=== PATIENT | female | born 1950 | race Caucasian/White ===

== ENCOUNTER → 2020-05-03 13:32 | Outpatient (REF) | payer MEDICARE, OTHER, SELFPAY | LOC: ANHLAB 13:32 | PROVIDERS: PCP Internal Medicine; Visit Provider Nurse Practitioner | DX: D49.2 Neoplasm of unspecified behavior of bone, soft tissue, and skin (principal) | CPT/HCPCS: 88305 ==

== ENCOUNTER 2022-09-19 13:00 | Outpatient (NON) | payer MEDICARE, OTHER, SELFPAY | END 2022-09-19 13:01 | disposition home or self-care (01) | PROVIDERS: PCP Internal Medicine; Visit Provider Nurse Practitioner | DX: D03.59 Melanoma in situ of other part of trunk (principal) | CPT/HCPCS: 88305; 88342 ==

== ENCOUNTER 2022-10-03 13:00 | Outpatient (NON) | payer MEDICARE, OTHER, SELFPAY | END 2022-10-04 10:13 | disposition home or self-care (01) | PROVIDERS: PCP Internal Medicine; Visit Provider Nurse Practitioner | DX: D03.9 Melanoma in situ, unspecified (principal) | CPT/HCPCS: 88305; 88342 ==

== ENCOUNTER 2023-01-25 12:37 | Outpatient (NON) | payer MEDICARE, OTHER, SELFPAY | END 2023-01-25 12:38 | disposition home or self-care (01) | LOC: ANHLAB 01-26 12:40 | PROVIDERS: PCP Internal Medicine; Visit Provider Nurse Practitioner | DX: L82.1 Other seborrheic keratosis (principal) | CPT/HCPCS: 88305 ==

== ENCOUNTER 2023-10-15 15:24 | Outpatient (CLI) | payer MEDICARE, OTHER, SELFPAY ==
[2023-10-15 16:10] LABS: Basophils Percent Auto 0.6 % (0.2-1.2); Eosinophils Absolute Auto 0.1 K/mm3 (0-0.3); Eosinophils Percent Auto 1.2 % (0-4.4); Hematocrit 39.7 % (37.0-47.0); Hemoglobin 12.4 g/dL (12.0-15.0); Lymphocytes Absolute Auto 1.12 K/mm3 (0.9-3.2); Lymphocytes Percent Auto 23.2 % (18.3-44.2); Mean Corpuscular HGB Conc 31.2 g/dl (32-36); Mean Corpuscular Hemoglobin 31.3 pg (26-34); Mean Corpuscular Volume 100.3 fl (80-100); Mean Platelet Volume 9.6 fl (7.4-10.4); Monocytes Absolute Auto 0.5 K/mm3 (0.1-0.6); Monocytes Percent Auto 9.3 % (2.6-8.5); Neutrophils Absolute Auto 3.2 K/mm3 (1.3-6.7); Neutrophils Percent Auto 65.7 % (45.5-73.1); Platelet Count Result 199 k/mm3 (150-375); Red Blood Count 3.96 M/mm3 (4.2-5.4); Red Cell Distribution Width 13.2 % (11.5-14.5); White Blood Count 4.8 K/mm3 (4.5-10.0)
--- NOTE | 2023-10-15 16:11 | ECG_ITS ---
Measurements Intervals [place] Rate: 83 P: -1 RI: 161 QRS: -27 QRSD: 102 T: 8 QT: 354 QTc: 416 Interpretive Statements SINUS RHYTHM DELAYED PRECORDIAL R/S TRANSITION LOW QRS VOLTAGE IN LIMB LEADS INFERIOR INFARCT, AGE INDETERMINATE ABNORMAL ECG NO PREVIOUS ECG AVAILABLE FOR COMPARISON Electronically Signed On 10-15-2023 16:44:04 SPEED OPERATOR by Gennaro Mario D.O.
[2023-10-15 16:20] LABS: Appearance Urine Clear (Clear); Bacteria Urine None Seen /hpf; Bilirubin Urine Negative (Negative); Blood Urine Negative (Negative); Color Urine Yellow (Yellow); Glucose Urine UA Negative (Negative); Ketones Urine Trace mg/dL (Negative); Leukocyte Esterase Ur 1+ LEU/UL (NEGATIVE); Nitrate Urine Negative (Negative); Non Pathogenic Casts 0-2; Protein Urine Negative (Negative); RBC Urine 0-2 /hpf (0-2); Specific Grav Ur 1.025 (1.001-1.035); Squamous Epithelial Cell Urine None seen /hpf (Few); pH Urine 5.5 (5.0-9.0)
[2023-10-15 16:21] LABS: Anion Gap 7 mmol/L (8-16); Blood Urea Nitrogen 23 mg/dL (7-17); Calcium 9.1 mg/dL (8.4-10.2); Carbon Dioxide 30 mmol/L (22-30); Chloride 104 mmol/L (98-107); Estimated Glomerular Filt Rate > 60; Glucose 103 mg/dL (65-110); Potassium 3.9 mmol/L (3.4-5.0); Sodium 141 mmol/L (137-145)
[2023-10-15 16:34] LABS: Add Urine Microscopic? YES
== END 2023-10-15 15:25 | disposition home or self-care (01) ==
PROVIDERS: PCP Family Medicine; Visit Provider Nurse Practitioner Family
DX: M17.12 Unilateral primary osteoarthritis, left knee (principal); R53.83 Other fatigue; R94.31 Abnormal electrocardiogram [ECG] [EKG]
CPT/HCPCS: 36415; 80048; 81001; 85025; 93005

== ENCOUNTER 2023-12-25 11:41 | Outpatient (CLI) | payer MEDICARE, OTHER, SELFPAY ==
[2023-12-25 13:05] LABS: Basophils Percent Auto 0.4 % (0.2-1.2); Eosinophils Absolute Auto 0.1 K/mm3 (0-0.3); Eosinophils Percent Auto 1.1 % (0-4.4); Hematocrit 36.4 % (37.0-47.0); Hemoglobin 12.1 g/dL (12.0-15.0); Immature Granulocyte Absolute 0.02 K/mm3 (0.00-0.031); Immature Granulocyte Percent A 0.4 % (0-0.5); Lymphocytes Absolute Auto 0.85 K/mm3 (0.9-3.2); Lymphocytes Percent Auto 19.1 % (18.3-44.2); Mean Corpuscular HGB Conc 33.2 g/dl (32-36); Mean Corpuscular Hemoglobin 31.2 pg (26-34); Mean Corpuscular Volume 93.8 fl (80-100); Monocytes Absolute Auto 0.4 K/mm3 (0.1-0.6); Monocytes Percent Auto 8.5 % (2.6-8.5); Neutrophils Absolute Auto 3.1 K/mm3 (1.3-6.7); Neutrophils Percent Auto 70.5 % (45.5-73.1); Platelet Count Result 212 k/mm3 (150-375); Red Blood Count 3.88 M/mm3 (4.2-5.4); Red Cell Distribution Width 12.8 % (11.5-14.5); White Blood Count 4.5 K/mm3 (4.5-10.0)
[2023-12-25 13:07] LABS: Appearance Urine Clear (Clear); Bilirubin Urine Negative (Negative); Blood Urine Negative (Negative); Color Urine Yellow (Yellow); Glucose Urine UA Negative (Negative); Ketones Urine Trace mg/dL (Negative); Leukocyte Esterase Ur Negative LEU/UL (Negative); Nitrate Urine Negative (Negative); Protein Urine Negative (Negative); Specific Grav Ur 1.022 (1.001-1.035)
[2023-12-25 13:16] LABS: Add Urine Microscopic? NO; Albumin Level 4.1 g/dL (3.5-5.1); Anion Gap 4 mmol/L (8-16); Blood Urea Nitrogen 17 mg/dL (7-17); Carbon Dioxide 31 mmol/L (22-30); Chloride 104 mmol/L (98-107); Estimated Glomerular Filt Rate > 60; Glucose 92 mg/dL (65-110); Potassium 3.9 mmol/L (3.4-5.0); Sodium 139 mmol/L (137-145)
[2023-12-25 13:18] LABS: Urine Cotinine NEGATIVE
[2023-12-25 13:19] LABS: Partial Thromboplastin Time 28.7 SECONDS (22.3-36.8); Prothrombin Time 13.4 Seconds (11.1-14.7)
[2023-12-25 13:26] LABS: Hemoglobin A1C 4.8 % (<5.7)
[2023-12-25 14:20] LABS: MRSA (PCR) NOT DETECTED (NOT DETECTE)
== END 2023-12-25 11:42 | disposition home or self-care (01) ==
LOC: ANHSURGERY 11:46
PROVIDERS: PCP Family Medicine; Visit Provider Orthopaedic Surgery
DX: Z01.818 Encounter for other preprocedural examination (principal); M17.12 Unilateral primary osteoarthritis, left knee
CPT/HCPCS: 80048; 80307; 81003; 82040; 83036; 85025; 85610; 85730; 87641

== ENCOUNTER 2024-01-17 17:59 | Observation (INO) | payer MEDICARE, OTHER, SELFPAY ==
--- NOTE | 2023-12-25 11:38 | PC.NURSE ---
Addendum entered by Elizabeth Valencia RN 12/25/23 12:27: PT AWARE 3 HOURS PRIOR TO SURGERY IS 0730 NOT 0930 Original Note: PRE-OP INSTRUCTIONS, PLEASE READ CAREFULLY Report to the Outpatient Waiting Room, entrance under the green pavilion located off [facility], at time _0830_ on date _01/09/24_. Planned Procedure Time: _1030_. PACK A SMALL OVERNIGHT BAG AND LEAVE IN THE CAR ALONG WITH YOUR WALKER Time changes happen often and if your time is changed the preop area will call you the afternoon before. - You and your visitor will be asked to self-screen and do not enter if you have any COVID symptoms. - A mask is optional within the hospital at this time. -VISITING HOURS 8AM-8PM Patients may have clear liquids (water, carbonated beverages, clear teas, apple juice) until 3 hours prior to surgery (0930 AM) with a maximum of 20 ounces. - No food from midnight until time of surgery Take the following medications with a SIP of water the morning of surgery: _NONE_ DO NOT STOP ANY OF YOUR OTHER PRESCRIPTION MEDICATIONS PRIOR TO SURGERY ?EXCEPT THE FOLLOWING Medications to discontinue per - _ALEVE PER DR. PIMENTEL'S INSTRUCTIONS_ Medications to discontinue per ANESTHESIA - _VITAMINS/SUPPLEMENTS 3 DAYS PRIOR TO SURGERY, Date to take last dose 01/05/24_ Please no make-up, nail andorran, hairspray, perfume, deodorant, or body powder the day of surgery. No jewelry (including any body piercings) or valuables the day of surgery, leave them at home. Please take a shower or bath the night before, or the morning of, surgery with an antibacterial soap. Wear comfortable, loose fitting clothing. - Jewelry must be removed prior to entering the operating room. Rings and piercings that are not removed may be cut off. - The hospital will not accept responsibility for valuables. - Please leave all valuables, including medications, at home the day of surgery. If you are going home after surgery, a licensed high lift driver must drive you home. - NO public transportation without another adult if you receive anesthesia. - We recommend that an adult stay with you for 24 hours following discharge. - We also recommend that you do not drive, make important decision, drink alcoholic beverages, or take any drugs that were not prescribed by your health care provider for at least 24 hours after your discharge time. Follow any additional instructions given to you from your surgeon. *TOTAL JOINT CLASS 12/26/23 @ [address] - [facility] ENTRANCE 2, LOWER LEVEL* If you or anyone in your household have experienced Covid symptoms in the past week, please notify your surgeon or the nurse liaison at the phone number below for possible testing. Instructions given to _PATIENT_and asked if any additional questions and then verbalized understanding. Patient advised to call surgeon office or pre surgery nurse liaison [phone] if any additional questions.
[2023-12-25 12:09] VITALS: BP 134/68; PULSE 80; RESP 18; TEMP 37; O2SAT 98; BMI 28.3
--- NOTE | 2024-01-11 09:12 | PC.NURSE ---
PT CONTACTED REGARDING NEW DATE/TIME OF SURGERY. PT STATES NO CHANGE IN HEALTH HX OR MED LIST - NEW DATE/TIME GIVEN, PT VOICED UNDERSTANDING
[2024-01-16] VITALS (16 sets, daily range): BP systolic 102–142; BP diastolic 56–80; PULSE 72–98; RESP 14–18; TEMP 36.4–37; O2SAT 90–100
[2024-01-16] MEDS: ACETAMINOPHEN 500 MG TABLET 1000 MG PO (06:38)
[2024-01-16] MEDS: LACTATED RINGERS 1,000 ML 30 ML IV CONT ×2 (06:45→10:09)
--- NOTE | 2024-01-16 06:58 | WPDANESEPPF ---
Anes - Initial Pre Proc Eval Procedure: Operation Date: 01/16/24 07:30 Proposed Procedures p Left Total Knee Arthroplasty - Abdiel Dalton MD Date/Time: 01/16/24 06:58 Surgeon: Abdiel Dalton MD Pre Op Diagnosis: severe lft knee djd w/valgus deformity Patient Data Age: 73 Gender: F Height: 1.54 m Weight: 67.45 kg Last Vital Signs Temp 36.4 C 01/16/24 06:52 Pulse 83 01/16/24 06:52 Resp 16 01/16/24 06:52 BP 142/75 H 01/16/24 06:52 Pulse Ox 98 01/16/24 06:52 O2 Del Method Room Air 01/16/24 06:52 Allergies Allergy/AdvReac Type Severity Reaction Status Date / Time No Known Allergies Allergy Verified 01/16/24 06:22 Home Medications Medication Instructions Recorded Confirmed Type ascorbate calcium (vitamin C) 500 2,000 mg PO DAILY 04/12/21 01/16/24 History mg tablet biotin 10,000 mcg capsule 10,000 mcg PO DAILY 04/12/21 01/16/24 History cholecalciferol (vitamin D3) 50 50 mcg PO DAILY 04/12/21 01/16/24 History mcg (2,000 unit) capsule iron,carbonyl 65 mg-vitamin C 125 1 tablet PO DAILY 04/12/21 01/16/24 History mg tablet,delayed release (Vitron-C) apppeeeb-wmpw-npdk 8 mg-folic 400 1 tablet PO DAILY 04/12/21 01/16/24 History mcg-K 50 mcg-lutein 300 mcg tablet (Centrum Silver Women) magnesium 250 mg tablet 250 mg PO DAILY 10/15/23 01/16/24 History mecobalamin (vitamin B12) 1,000 1,000 mcg PO DAILY 10/15/23 01/16/24 History mcg chewable tablet calcium carbonate 600 mg calcium 600 mg PO BID 10/17/23 01/16/24 History (1,500 mg) tablet lorazepam 0.5 mg tablet See Rx Instructions PO QHS PRN 10/17/23 12/25/23 Rx sleep #30 tabs chlorhexidine gluconate 4 % 1 applic topical ONCE #237 mL 12/25/23 01/16/24 Rx topical liquid (Hibiclens) multivitamin with minerals 1 tablet PO DAILY 12/25/23 01/16/24 History naproxen sodium 220 mg capsule 220 mg PO Q12H PRN Pain 12/25/23 01/16/24 History (Aleve) turmeric root extract 150 1 tablet PO DAILY 12/25/23 01/16/24 History mg-rachel root extract 25 mg chewable tablet Patient hx anesthesia problems: none Family hx anesthesia problems: none Results Review: All pre-operative results and documents have been reviewed as part of the pre-operative evaluation. PMFSH Past Medical History Medical History Anemia Blepharitis, bilateral Dyslipidemia Hiatal hernia Iron deficiency Knee pain Osteoarthritis of left knee Osteoarthritis of right knee Osteoporosis Preoperative clearance Rash Right knee pain Surgical History Surgical History H/O parathyroidectomy x4 Family History Family History Sibling Hypertension Father Family history of cardiovascular disease Mother Family history of cardiovascular disease Family history of malignant neoplasm Social History Social History Smoking status: Never smoker Second hand tobacco smoke exposure: No Additional smoking assessment comments: PT DENIES ALL FORMS OF TOBACCO USE Alcohol intake: never Substance use: never Substance use type: does not use Lack of Transportation: No Lack of Food: Never True Current Housing: I Have Housing Concerned About Future Housing: No Difficulty Paying Gas/Electric Bills: No Difficulty Paying for Meds: No Currently Unemployed: No Education: High School Diploma/GED Difficulty w/ Childcare or Family Care: No Living arrangements: with family Occupation/Education: retired Gender identity (if verbalized by the patient): Female Sexual Orientation (if Verbalized by the Patient): Straight or Heterosexual Spiritual care concerns: No Anes - Eval Final PreProcedure Day of Procedure 01/16/24 06:58 Patient weight: overweight Heart: regular rate and rhythm Lungs: clear t
[2024-01-16] MEDS: TRANEXAMIC ACID 1,000MG/ISO100 1,000 MG/100 ML BAG 200 MG IVPB (07:15)
--- NOTE | 2024-01-16 07:17 | WPDHPUPDATE1 ---
History and Physical Update Update Date/Time: 01/16/24 07:17 History and Physical has been reviewed, including an updated exam of the patient. There are NO changes in the patient's condition. Risks, benefits, and alternatives have been discussed and questions answered. Patient agrees to proceed with procedure.
--- NOTE | 2024-01-16 07:25 | PM.IMHP ---
H&P: HPI History of Present Illness Date/Time: 01/16/24 07:25 Chief Complaint: LEFT KNEE PAIN X 1 YEAR. HER PAIN S SEVERE. SHE HAS FAILED NON OPERATIVE TREATMENT. SHE IS HERE FOR LEFT KNEE REPLACEMENT Review of Systems Review of Systems: All systems reviewed & are unremarkable except as noted in HPI and below Eyes: Eyes: Reports as per HPI Cardiovascular: Cardiovascular: Reports as per HPI [facility] Past Medical History Medical History Anemia Blepharitis, bilateral Dyslipidemia Hiatal hernia Iron deficiency Knee pain Osteoarthritis of left knee Osteoarthritis of right knee Osteoporosis Preoperative clearance Rash Right knee pain Surgical History Surgical History H/O parathyroidectomy x4 Family History Family History Sibling Hypertension Father Family history of cardiovascular disease Mother Family history of cardiovascular disease Family history of malignant neoplasm Social History Social History Smoking status: Never smoker Second hand tobacco smoke exposure: No Additional smoking assessment comments: PT DENIES ALL FORMS OF TOBACCO USE Alcohol intake: never Substance use: never Substance use type: does not use Lack of Transportation: No Lack of Food: Never True Current Housing: I Have Housing Concerned About Future Housing: No Difficulty Paying Gas/Electric Bills: No Difficulty Paying for Meds: No Currently Unemployed: No Education: High School Diploma/GED Difficulty w/ Childcare or Family Care: No Living arrangements: with family Occupation/Education: retired Gender identity (if verbalized by the patient): Female Sexual Orientation (if Verbalized by the Patient): Straight or Heterosexual Spiritual care concerns: No Meds Home Medications and Allergies Home Medications Medication Instructions Recorded Confirmed Type ascorbate calcium (vitamin C) 500 2,000 mg PO DAILY 04/12/21 01/16/24 History mg tablet biotin 10,000 mcg capsule 10,000 mcg PO DAILY 04/12/21 01/16/24 History cholecalciferol (vitamin D3) 50 50 mcg PO DAILY 04/12/21 01/16/24 History mcg (2,000 unit) capsule iron,carbonyl 65 mg-vitamin C 125 1 tablet PO DAILY 04/12/21 01/16/24 History mg tablet,delayed release (Vitron-C) ivnfnmwq-bfhj-wcoe 8 mg-folic 400 1 tablet PO DAILY 04/12/21 01/16/24 History mcg-K 50 mcg-lutein 300 mcg tablet (Centrum Silver Women) magnesium 250 mg tablet 250 mg PO DAILY 10/15/23 01/16/24 History mecobalamin (vitamin B12) 1,000 1,000 mcg PO DAILY 10/15/23 01/16/24 History mcg chewable tablet calcium carbonate 600 mg calcium 600 mg PO BID 10/17/23 01/16/24 History (1,500 mg) tablet lorazepam 0.5 mg tablet See Rx Instructions PO QHS PRN 10/17/23 12/25/23 Rx sleep #30 tabs chlorhexidine gluconate 4 % 1 applic topical ONCE #237 mL 12/25/23 01/16/24 Rx topical liquid (Hibiclens) multivitamin with minerals 1 tablet PO DAILY 12/25/23 01/16/24 History naproxen sodium 220 mg capsule 220 mg PO Q12H PRN Pain 12/25/23 01/16/24 History (Aleve) turmeric root extract 150 1 tablet PO DAILY 12/25/23 01/16/24 History mg-rachel root extract 25 mg chewable tablet Allergies Allergy/AdvReac Type Severity Reaction Status Date / Time No Known Allergies Allergy Verified 01/16/24 06:22 Vital Signs Vital Signs - 24 hr 01/16/24 06:52 Temperature 36.4 C Pulse Rate 83 Respiratory Rate 16 Blood Pressure 142/75 H Pulse Oximetry 98 Oxygen Delivery Room Air Exam Const: General: cooperative, healthy appearing and comfortable HENMT: Head: normal to inspection, No palpable skull fracture present and normocephalic Ears: hearing grossly normal bilaterally Eyes: General: appearance normal, both eyes and all
--- NOTE | 2024-01-16 07:29 | WPDANESPNB ---
Anes - Peripheral Nerve Block Date/Time: 01/16/24 07:29 I have discussed with the patient/family/POA the placement of a peripheral nerve block for post-operative pain management, including associated risks, benefits, complications, and side effects. Alternative methods of post-operative analgesia were detailed. Questions were solicited and answers provided to the satisfaction of the patient/family/POA. Time-Out: A pre-procedural Time-Out was completed immediately before starting the procedure and confirmed: Patient Identification, Site, Procedure, Patient Position and the Availability of Requisite Equipment. Clinical Indications: Acute post-operative pain management requested by the operative surgeon. Nerve Block Insertion Note Anes-nerve block: adductor canal left Patient position: supine Skin prep: chlorhexidine Needle: 22 gauge, stimulating, insulated echogenic needle. Needle length: 80 mm Technique: ultrasound Injectate: bupivacaine 0.5% with epi 5 mcg/ml (30cc) and dexamethasone (mg) (8) Observations: tolerated well Complications: none Procedure start time:: 725 Procedure end time:: 729
[2024-01-16] MEDS: ceFAZolin 2 GM/D5W 50 ML 2 GM/50 ML BAG IVPB ×3 (07:30→23:12)
--- NOTE | 2024-01-16 07:33 | WPDHPUPDATE1 ---
History and Physical Update Update Date/Time: 01/16/24 07:33 History and Physical has been reviewed, including an updated exam of the patient. There are NO changes in the patient's condition. Risks, benefits, and alternatives have been discussed and questions answered. Patient agrees to proceed with procedure.
[2024-01-16] MEDS: SODIUM CHLORIDE 0.9% IV 37.7 ML, MORPHINE SULFATE INJ (*CRX) 2 MG, ROPivacaine HCL 1% 2... INFILTRATE (08:06)
[2024-01-16] MEDS: GENTAMICIN BONE CEMENT REFOBACIN 1 EACH TOPICAL (08:52)
[2024-01-16] MEDS: TRANEXAMIC ACID 1,000 MG/10 ML AMPUL 1000 MG IV PUSH (09:08)
--- NOTE | 2024-01-16 09:54 | P.OP_ITS ---
Procedure Note - Detailed Date of Procedure 01/16/24 Pre-op Diagnosis severe lft knee djd w/valgus deformity Post-op Diagnosis Same Procedure Performed L TKA Surgeon Abdiel Dalton MD Anesthesia General Description of Procedure THE LEFT KNEE WAS PREPPED AND DRAPED IN THE STERILE FASHION. THERE WAS A 10 DEGREE FLEXION CONTRACTURE. A MIDLINE SKIN INCISION WAS MADE. A MEDIAL PARAPATELLAR ARTHROTOMY WAS MADE. THE PATELLA WAS EVERTED. THERE WAS TRICOMPARTMENT DJD. THERE WAS MINIMAL PATELLA DJD. AN INTRAMEDULLARY FLORINA WAS PLACED IN THE FEMUR. A DISTAL FEMORAL CUT WAS MADE IN 5 DEGREES OF VALGUS REMOVING APPROXIMATELY 9 MM OF BONE FROM THE DISTAL FEMUR. THE FEMUR WAS SIZED TO 62.5. A 62.5 FEMORAL CUTTING BLOCK WAS PLACED IN 3 DEGREES OF EXTERNAL ROTATION AND IN ALIGNMENT WITH KIMANI'S LINE AND THE TRANSEPICONDYLAR AXIS. ANTERIOR POSTERIOR AND CHAMFER CUTS WERE MADE. THE CUTS WERE EXCELLENT. NEXT AN INTRAMEDULLARY CUTTING GUIDE WAS PLACED IN THE TIBIA. A TRANS TIBIAL CUT WAS MADE ALONG THE LONG AXIS OF THE TIBIA. APPROXIMATELY 10 MM OF BONE WAS REMOVED FROM THE HIGH SIDE OF THE TIBIA. THE TIBIA WAS THEN PLANED TO A SMOOTH SURFACE. POSTERIOR FEMORAL OSTEOPHYTES WERE REMOVED FROM THE FEMORAL CONDYLES. A 71 TIBIAL TRIAL WAS PLACED IN ALIGNMENT WITH THE 1/3 MEDIAL ASPECT OF THE TIBIAL T UBERCLE. THEN A 62.5 FEMORAL TRIAL COMPONENT WAS PLACED. BOTH HAD EXCELLENT FITS. EVENTUALLY A 10 MM POLYETHYLENE TRIAL COMPONENT WAS PLACED. THE KNEE WAS TAKEN THROUGH A RANGE OF MOTION. THE KNEE CAME OUT TO FULL EXTENSION. THERE WAS NO ABNORMAL TILT TO THE PATELLA. THERE WAS GOOD A/P AND VARUS/VALGUS STABILITY. THERE WAS NO EXCESSIVE ROLL BACK WITH FLEXION. THE TRIAL COMPONENTS WERE REMOVED. THEN A 62.5 FEMORAL COMPONENT AND 71 TIBIAL COMPONENT WITH A 10 POLYETHYLENE COMPONENT WERE CEMENTED INTO PLACE. ONCE THE CEMENT WAS HARD THE KNEE WAS TAKEN THROUGH A ROM AGAIN AND FOUND TO BE STABLE WITH NO PATELLA TILT NO EXCESSIVE ROLL BACK WITH FLEXION AND GOOD STABILITY WITH COMPLETE AND FULL EXTENSION. THE KNEE WAS IRRIGATED WITH STERILE BETADINE AND WATER FOR ABOUT 3 MINUTES. THE BLEEDERS WERE CAUTERIZED. THE ARTHROTOMY WAS REPAIRED WITH NUMBER 1 VICRYL. THE SUB CUTANEOUS LAYER WITH 2-0 VICRYL AND THE SKIN WITH PENNY. THE WOUND WAS WASHED AND A STERILE DRESSING WAS APPLIED. PATIENT WAS EXTUBATED. Estimated Blood Loss -150.0 Pathology None sent Complications No immediate complications Condition Stable Disposition PACU
[2024-01-16] MEDS: fentaNYL CITRATE INJ (*CRX) 100 MCG/2 ML VIAL 25 MCG IV PUSH ×8 (10:30→11:19)
--- NOTE | 2024-01-16 11:57 | ADMGEN ---
This patient, Ange Carrasco, was admitted to room 261 -. Patient/family oriented to hospital policies and general routines including ID bracelet, bed and alarms, visiting hours, pain management, procedures, bathroom and other care routines, personal items, smoking policy, room service/diet, and visiting hours. Information on how to activate the Rapid Response Team has been discussed. Patient/Family are encouraged to report perceived risks to care and to ask questions if they do not understand what they are told or what they should do.
[2024-01-16] MEDS: oxyCODONE/ACETAMINOPHEN (*CRX) 5-325 MG TABLET 1 TABLET PO (16:32)
[2024-01-16] MEDS: CELECOXIB 200 MG CAPSULE PO (16:32)
--- NOTE | ~2024-01-17 | XR_ITS ---
EXAMINATION: [id number] DATE: 01/16/2024 10:24 INDICATION: Postoperative evaluation following left total knee arthroplasty. TECHNIQUE: Anteroposterior and lateral views of the left knee were obtained. COMPARISON: 12/14/2023 FINDINGS: Left total knee arthroplasty without patellar resurfacing appears well seated and in near anatomic al ignment. No fractures identified. Anterior skin siabel and expected postoperative subcutaneous and intra-articular gas. IMPRESSION: 1. Left total knee arthroplasty, negative for postoperative purposes. Reviewed, dictated and finalized at location B. [employer]
--- NOTE | ~2024-01-17 | US_ITS ---
EXAMINATION: US venous doppler [facility] DATE: 01/18/2024 11:09 INDICATION: Left lower limb pain and swelling. TECHNIQUE: Grayscale ultrasound images without and with compression and Doppler ultrasound images of the left lower extremity veins were obtained. COMPARISON: None. FINDINGS: The visualized portions of left common femoral vein, profunda (deep) femoral vein, femoral vein, popl iteal vein, peroneal veins, posterior tibial veins, and greater saphenous vein outflow are patent. IMPRESSION: 1. No deep venous thrombosis. Reviewed, dictated and finalized at location A. [employer]
[2024-01-17 01:34] VITALS: BP 109/63; PULSE 73; RESP 20; TEMP 36.8; O2SAT 98
[2024-01-17 05:40] LABS: Basophils Percent Auto 0.1 % (0.2-1.2); Eosinophils Percent Auto 0.3 % (0-4.4); Hematocrit 29.5 % (37.0-47.0); Hemoglobin 9.4 g/dL (12.0-15.0); Immature Granulocyte Absolute 0.02 K/mm3 (0.00-0.031); Immature Granulocyte Percent A 0.3 % (0-0.5); Lymphocytes Absolute Auto 1.01 K/mm3 (0.9-3.2); Lymphocytes Percent Auto 12.8 % (18.3-44.2); Mean Corpuscular HGB Conc 31.9 g/dl (32-36); Mean Corpuscular Hemoglobin 31.2 pg (26-34); Mean Platelet Volume 9.7 fl (7.4-10.4); Monocytes Absolute Auto 0.8 K/mm3 (0.1-0.6); Monocytes Percent Auto 9.5 % (2.6-8.5); Neutrophils Absolute Auto 6.1 K/mm3 (1.3-6.7); Platelet Count Result 145 k/mm3 (150-375); Red Blood Count 3.01 M/mm3 (4.2-5.4); Red Cell Distribution Width 13.2 % (11.5-14.5); White Blood Count 7.9 K/mm3 (4.5-10.0)
[2024-01-17 05:48] LABS: Anion Gap 3 mmol/L (8-16); Blood Urea Nitrogen 20 mg/dL (7-17); Calcium 8.4 mg/dL (8.4-10.2); Carbon Dioxide 29 mmol/L (22-30); Chloride 103 mmol/L (98-107); Estimated CRCL calculation 47 ml/min; Estimated Glomerular Filt Rate > 60; Glucose 102 mg/dL (65-110); Potassium 3.9 mmol/L (3.4-5.0); Sodium 135 mmol/L (137-145)
[2024-01-17 06:00] VITALS: BP 108/61; PULSE 77; RESP 20; TEMP 36.3; O2SAT 99
[2024-01-17] MEDS: ceFAZolin 2 GM/D5W 50 ML 2 GM/50 ML BAG IVPB (07:02)
[2024-01-17] MEDS: oxyCODONE/ACETAMINOPHEN (*CRX) 5-325 MG TABLET 1 TABLET PO ×4 (08:21→22:27)
--- NOTE | 2024-01-17 09:21 | PM.PNORT ---
Progress Note: A&P Assessment and Plan (1) S/P total knee arthroplasty: Qualifiers: Laterality: left Qualified Code(s): Z96.652 - Presence of left artificial knee joint <LISSA Lauren - Last Filed: 01/17/24 09:33> Code(s): Z96.659 - Presence of unspecified artificial knee joint <LISSA Lauren - Last Filed: 01/17/24 09:33> Status: Acute <LISSA Lauren - Last Filed: 01/17/24 09:33> Assessment and Plan: POD #1 : Left TKA Continue PT/OT. WBAT. Walker. HIGH FALL RISK. Continue pain control. Ice Knee. Protect skin. DVT prophylaxis with Aspirin. SCDs. Incentive Spirometry Use reviewed. Monitor Dressing. Change prior to discharge. Bowel Regimen. Dispo: Home with Home Health pending progress with PT/OT <LISSA Lauren - Last Filed: 01/17/24 09:33> Assessment and Plan: Reviewed history, exam, radiographs and current labs with attending MD and patient's surgeon, Dr. Dalton, who agrees with current plan as indicated above. No further recommendations from Dr. Dalton at this time. <LISSA Lauren - Last Filed: 01/17/24 09:33> Subjective Subjective Date/Time Seen: 01/17/24 09:21 <LISSA Lauren - Last Filed: 01/17/24 09:33> Post Op day: 1 <LISSA Lauren - Last Filed: 01/17/24 09:33> Principal diagnosis: Left Knee DJD <LISSA Lauren - Last Filed: 01/17/24 09:33> Interval history: POD #1: Left TKA Patient doing well. Awaiting PT/OT. Concerned about ability to do stairs/ambulate with left foot drop. Awaiting brace fitting by [facility] [place] to assist with ambulation. Pain well controlled. Otherwise, no new concerns. Feels nerve block is starting to wear off. <LISSA Lauren - Last Filed: 01/17/24 09:33> Review of Systems Review of Systems: All systems reviewed & are unremarkable except as noted in HPI and below <LISSA Lauren - Last Filed: 01/17/24 09:33> Constitutional: Constitutional: Denies fever(s) and Denies headache(s) <MIRNA LaurenP - Last Filed: 01/17/24 09:33> ENT: Denies headache(s) <MIRNA LaurenP - Last Filed: 01/17/24 09:33> Cardiovascular: Cardiovascular: Denies chest pain, Denies diaphoresis, Denies palpitations and Denies dyspnea <MIRNA LaurenP - Last Filed: 01/17/24 09:33> Respiratory: Respiratory: Denies dyspnea <MIRNA LaurenP - Last Filed: 01/17/24 09:33> Gastrointestinal: Gastrointestinal: Denies abdominal pain, Denies constipation, Denies nausea and Denies vomiting <MIRNA LaurenP - Last Filed: 01/17/24 09:33> Genitourinary: Genitourinary: Reports nocturia and Denies dysuria <MIRNA LaurenP - Last Filed: 01/17/24 09:33> Musculoskeletal: Musculoskeletal: Reports arthralgias (Left Knee ), Reports joint swelling (Left Knee ) and Reports limited range of motion (ROM limited due to recent surgical intervention LEFT Knee ) <LISSA Lauren - Last Filed: 01/17/24 09:33> Neurologic: Denies headache(s) <MIRNA LaurenP - Last Filed: 01/17/24 09:33> Endocrine: Endocrine: Denies palpitations <MIRNA LaurenP - Last Filed: 01/17/24 09:33> Exam Const: General: comfortable and no acute distress <LISSA Lauren - Last Filed: 01/17/24 09:33> Resp: Effort & Inspection: normal respiratory effort <LISSA Lauren - Last Filed: 01/17/24 09:33> Cardio: Rate: regular rate <LISSA Lauren - Last Filed: 01/17/24 09:33> Rhythm: regular rhythm <LISSA Lauren - Last Filed: 01/17/24 09:33> GI: GI Palp: Yes Soft to palpation, No Tenderness to palpation present (GI) and No Guarding due to palpation present (GI) <LISSA Lauren - Last Filed: 01/17/24 09:33> Skin: General skin exam: wounds noted (see extremity assessment ) <LISSA Lauren - Last Filed: 01/17/24 09:33> Wounds: wounds noted (see extremity assessment ) <LISSA Lauren - Last Filed: 01/17/24 09:33> [place]
[2024-01-17] MEDS: CHOLECALCIFEROL 1,000 UNITS TABLET 2000 UNITS PO (10:03)
[2024-01-17] MEDS: FAMOTIDINE 20 MG TABLET PO ×2 (10:03→21:17)
[2024-01-17] MEDS: ASCORBIC ACID 500 MG TABLET 2000 MG PO (10:03)
[2024-01-17] MEDS: CALCIUM CARBONATE (OSCAL) 500 MG TABLET PO ×2 (10:04→16:26)
[2024-01-17] MEDS: SENNA/DOCUSATE SODIUM TABLET 2 TAB PO ×2 (10:04→16:26)
[2024-01-17] MEDS: ASPIRIN 325 MG ENTERIC TABLET PO ×2 (10:04→21:17)
[2024-01-17 10:18] VITALS: BP 107/57; PULSE 89; RESP 18; TEMP 36.9; O2SAT 98
--- NOTE | 2024-01-17 11:03 | PCOTNOTE ---
Per RN, Patient is waiting on an AFO to be delivered. Asked if I could come back later this afternoon. Will try back.
--- NOTE | 2024-01-17 12:01 | PC.NURSE ---
On 01/17/24, the student, [Roxana Moran], provided care and completed [facility] documentation on this patient. I have reviewed the student's documentation and agree with the findings.
--- NOTE | 2024-01-17 13:05 | WPDANESPN ---
Anes - Prog Note Post-Op Date/Time: 01/17/24 13:05 Cardiovascular status: normal Respiratory status: normal Airway patency: baseline Mental status: baseline Post-Op hydration status: normal Vital Signs: Last Vital Signs Temp 36.9 C 01/17/24 10:18 Pulse 89 01/17/24 10:18 Resp 18 01/17/24 10:18 BP 107/57 L 01/17/24 10:18 Pulse Ox 98 01/17/24 10:18 O2 Del Method Room Air 01/16/24 12:34 O2 Flow Rate 2 01/16/24 12:30 Pain Score (VAS): 2 I/O: Intake & Output 01/16/24 01/17/24 01/17/24 23:59 07:59 15:59 Intake Total 1130 500 240 Balance 1130 500 240 Laboratory Tests 01/17/24 05:15 01/17/24 05:15 01/17/24 05:15 WBC 7.9 RBC 3.01 L Hgb 9.4 L Hct 29.5 L MCV 98.0 MCH 31.2 MCHC 31.9 L RDW 13.2 Plt Count 145 L MPV 9.7 Immature Gran % (Auto) 0.3 Neut % (Auto) 77.0 H Lymph % (Auto) 12.8 L Hanson % (Auto) 9.5 H Eos % (Auto) 0.3 Baso % (Auto) 0.1 L Lymph # (Auto) 1.01 Hanson # (Auto) 0.8 H Eos # (Auto) 0.0 Baso # (Auto) 0.0 Abs Immat Gran (auto) 0.02 Absolute Neuts (auto) 6.1 Absolute Nucleated RBC 0.0 Nucleated RBC % 0.0 Sodium 135 L Potassium 3.9 Chloride 103 Carbon Dioxide 29 Anion Gap 3 L BUN 20 H Creatinine 0.80 Estim Creat Clear Calc 47 Estimated GFR > 60 Glucose 102 Calcium 8.4 Post-procedural complaints: none Patient Feedback: Patient satisfied with anesthetic care.
[2024-01-17 14:00] VITALS: BP 105/58; PULSE 92; RESP 18; TEMP 36.7; O2SAT 100
--- NOTE | 2024-01-17 15:13 | PC.NURSE ---
Beverly Peter TANK COOPER notified of increased swelling in left leg and foot from previous assessment this am.
[2024-01-17 18:24] VITALS: BP 121/71; PULSE 98; RESP 18; TEMP 36.7; O2SAT 95
[2024-01-17 22:13] VITALS: BP 110/76; PULSE 96; RESP 20; TEMP 36.4; O2SAT 98
[2024-01-18 01:32] VITALS: BP 113/65; PULSE 101; RESP 18; TEMP 36.6; O2SAT 96
[2024-01-18] MEDS: polyethylene glycoL 3350 17 GM POWD.PACK PO (05:40)
[2024-01-18 06:00] VITALS: BP 113/58; PULSE 97; RESP 18; TEMP 37.2; O2SAT 96
[2024-01-18] MEDS: FAMOTIDINE 20 MG TABLET PO (07:58)
[2024-01-18] MEDS: SENNA/DOCUSATE SODIUM TABLET 2 TAB PO (07:59)
[2024-01-18] MEDS: oxyCODONE/ACETAMINOPHEN (*CRX) 5-325 MG TABLET 1 TABLET PO (08:04)
[2024-01-18 09:28] VITALS: O2SAT 96
--- NOTE | 2024-01-18 09:53 | PM.PNORT ---
Progress Note: A&P Assessment and Plan (1) S/P total knee arthroplasty: Qualifiers: Laterality: left Qualified Code(s): Z96.652 - Presence of left artificial knee joint Code(s): Z96.659 - Presence of unspecified artificial knee joint Status: Acute Assessment and Plan: POD #2: Left TKA Continue PT/OT. WBAT. Walker. HIGH FALL RISK. Continue pain control. Ice Knee. Protect skin. Patient with complaints of nerve type pain in the LLE likely related to the foot drop. Added gabapentin today. Reviewed fall precautions. DVT prophylaxis with Aspirin. Obtain doppler. SCDs. Incentive Spirometry Use reviewed. Monitor Dressing. Change prior to discharge. Bowel Regimen. Add Miralax. Dispo: Home with Home Health pending progress with PT/OT Plan Reviewed history, exam, radiographs and current labs with attending MD and patient's surgeon, Dr. Dalton, who agrees with current plan as indicated above. No further recommendations from Dr. Dalton at this time. Subjective Subjective Date/Time Seen: 01/18/24 09:53 Post Op day: 2 Principal diagnosis: Left Knee DJD Interval history: POD #2: Left TKA Patient working with OT at the time of exam. Difficulty fitting foot drop brace into the shoe. Complains of left calf pain. Swelling noted, consistent with recent surgical intervention. Assist with modification to foot drop brace to fit into shoe. Patient ambulating with walker well. Review of Systems Review of Systems: All systems reviewed & are unremarkable except as noted in HPI and below Constitutional: Constitutional: Denies fever(s) and Denies headache(s) ENT: Denies headache(s) Cardiovascular: Cardiovascular: Denies chest pain, Denies diaphoresis, Denies palpitations and Denies dyspnea Respiratory: Respiratory: Denies dyspnea Gastrointestinal: Gastrointestinal: Denies abdominal pain, Denies constipation, Denies nausea and Denies vomiting Genitourinary: Genitourinary: Reports nocturia and Denies dysuria Musculoskeletal: Musculoskeletal: Reports arthralgias (Left Knee ), Reports joint swelling (Left Knee ) and Reports limited range of motion (ROM limited due to recent surgical intervention LEFT Knee ) Neurologic: Denies headache(s) Endocrine: Endocrine: Denies palpitations Exam Const: General: comfortable and no acute distress Resp: Effort & Inspection: normal respiratory effort Cardio: Rate: regular rate Rhythm: regular rhythm GI: GI Palp: Yes Soft to palpation, No Tenderness to palpation present (GI) and No Guarding due to palpation present (GI) Skin: General skin exam: wounds noted (see extremity assessment ) Wounds: wounds noted (see extremity assessment ) Neuro: Cognition (Neuro): normal cognition Extrem: Left lower extremity: normal to inspection, normal capillary refill, knee Details: tenderness (diffuse ) Location: of the patella, swelling (moderate consistent to recent surgery ), abnormal ROM (limited due to recent surgery ) Details: pain with active ROM and pain with passive ROM and ecchymosis (as expected with recent surgery. NO hematoma. ), lower leg (Negative Douglas's Sign ), ankle (inability to dorsiflex the left ankle. ) Details: normal to inspection and no edema; no tenderness and no swelling and foot Details: normal capillary refill, abnormal ROM of toe (foot drop ), vascular exam Details: dorsalis pedis pulse present and motor-sensory exam light-touch normal; no tenderness Other: Foot drop LLE. No dorsiflexion. Swelling LLE. Pain/numbness/tingling. Incision left TKA dressing c/d/i. No hematoma. No signs of infection. No wound dehiscence. Psych: Mental Status: mental status grossly normal Objective Data Vital Signs Vital Signs: Vital Signs - 24 hr 01/17/24 10:18 01/17/24 14:00 01/17/24 18:24 Temperature 36.9 C 36.7 C 36.7 C Pulse Rate 89 92 98 Respiratory Rate 18 18 18 Blood Pressure 107/57 L 105/58 L 121/71 Pulse Oximetry 98 100 95 Oxygen Delivery
[2024-01-18] MEDS: ASCORBIC ACID 500 MG TABLET 2000 MG PO (09:54)
[2024-01-18] MEDS: CALCIUM CARBONATE (OSCAL) 500 MG TABLET PO (09:55)
[2024-01-18] MEDS: ASPIRIN 325 MG ENTERIC TABLET PO (09:55)
[2024-01-18] MEDS: CHOLECALCIFEROL 1,000 UNITS TABLET 2000 UNITS PO (09:55)
[2024-01-18 10:02] VITALS: BP 118/70; PULSE 105; RESP 18; TEMP 36.7; O2SAT 97
[2024-01-18] MEDS: GABAPENTIN 100 MG CAPSULE PO (11:44)
--- NOTE | 2024-01-18 12:16 | PM.DS ---
DS: Admitting Diagnosis Discharge Date 01/18/2024 <LISSA Lauren - Last Filed: 01/18/24 12:42> Admitting Diagnosis Left Knee DJD <LISSA Lauren - Last Filed: 01/18/24 12:42> DS: Discharge Diagnosis Discharge Diagnosis (1) S/P total knee arthroplasty: Qualifiers: Laterality: left Qualified Code(s): Z96.652 - Presence of left artificial knee joint <LISSA Lauren - Last Filed: 01/18/24 12:42> Code(s): Z96.659 - Presence of unspecified artificial knee joint <LISSA Lauren - Last Filed: 01/18/24 12:42> Status: Acute <LISSA Lauren - Last Filed: 01/18/24 12:42> Assessment and Plan: POD #2: Left TKA Continue PT/OT. WBAT. Walker. HIGH FALL RISK. Continue pain control. Ice Knee. Protect skin. Patient with complaints of nerve type pain in the LLE likely related to the foot drop. Added gabapentin today. Reviewed fall precautions. DVT prophylaxis with Aspirin. Obtain doppler. SCDs. Incentive Spirometry Use reviewed. Monitor Dressing. Change prior to discharge. Bowel Regimen. Add Miralax. Dispo: Home with Home Health pending progress with PT/OT <LISSA Lauren - Last Filed: 01/18/24 12:42> Assessment and Plan: Reviewed history, exam, radiographs and current labs with attending MD and patient's surgeon, Dr. Dalton, who agrees with current plan as indicated above. No further recommendations from Dr. Dalton at this time. <LISSA Lauren - Last Filed: 01/18/24 12:42> DS: Summary Hospital Course Reason for hospitalization: Left TKA <LISSA Lauren - Last Filed: 01/18/24 12:42> Hospital Course: 73 year old female admitted s/p Left TKA for postoperative medical management, pain control and mobilization with PT/OT. Patient progressed well with PT/OT. Pain and vitals remained stable throughout. Patient had slow progress on POD #1 due to foot drop which occurred postoperatively likely due to severe valgus knee. We have fitted the patient with a foot drop brace and started her on Gabapentin for pain relief. We will also order a peroneal nerve stimulator for the patient as an outpatient to assist in recovery. The patient has been cleared to be discharged home with home health at this time. All discharge care instructions reviewed at depth. New medications reviewed. Follow up planned for 3 weeks in the outpatient orthopedic clinic with Dr. Dalton. Dr. Dalton in agreement with safe discharge at this time. <LISSA Lauren - Last Filed: 01/18/24 12:42> 73 year old female admitted s/p Left TKA for postoperative medical management, pain control and mobilization with PT/OT. Patient progressed well with PT/OT. Pain and vitals remained stable throughout. Patient had slow progress on POD #1. She progressed on pod 2 and did well with PT. She was fit with a brace that fit well in her shoe and was able to walk with good stability. The patient has been cleared to be discharged home with home health at this time. All discharge care instructions reviewed at depth. New medications reviewed. Follow up planned for 3 weeks in the outpatient orthopedic clinic with Dr. Dalton. Dr. Dalton in agreement with safe discharge at this time. <Abdiel Dalton MD - Last Filed: 01/18/24 15:24> Status at Discharge Functional status at discharge: uses cane/walker <LISSA Lauren - Last Filed: 01/18/24 12:42> Overall status at discharge: patient is progressing back to baseline <LISSA Lauren - Last Filed: 01/18/24 12:42> Time Spent with Patient Time attestation: Total time spent providing and/or coordinating discharge services: <LISSA Lauren - Last Filed: 01/18/24 12:42> Exam Const: General: cooperative, healthy appearing, comfortable and no acute distress <LISSA Lauren - Last Filed: 01/18/24 12:42> Orientation/consciousness: oriented to person, oriented to place and oriented to time
[2024-01-18] MEDS: oxyCODONE/ACETAMINOPHEN (*CRX) 5-325 MG TABLET 2 TABLET PO (12:59)
== END 2024-01-18 13:39 | disposition home health service (06) ==
LOC: ANHSURGERY 18:19 → ANH2MED 18:19
PROVIDERS: Admitting Provider Orthopaedic Surgery; PCP Family Medicine; Visit Provider Orthopaedic Surgery
PROC: (CPT 27447; principal; 2024-01-16 07:30)
DX: M17.12 Unilateral primary osteoarthritis, left knee (principal); G89.18 Other acute postprocedural pain; E78.5 Hyperlipidemia, unspecified; D50.9 Iron deficiency anemia, unspecified; M81.0 Age-related osteoporosis without current pathological fracture; M79.662 Pain in left lower leg; Z79.1 Long term (current) use of non-steroidal anti-inflammatories (NSAID); Z79.899 Other long term (current) drug therapy
CPT/HCPCS: 27447; 64447; 36415; 73560; 80048; 85025; 86850; 86900; 86901; 93971; 97110; 97116; 97161; 97165; 97530; 97535; A9270; C1713; C1776; G0378; J0171; J0690; J1100; J1885; J2250; J2270; J2405; J2704; J2795; J3010; J7120

== ENCOUNTER 2025-05-05 02:27 | Day surgery (SDC) | payer MEDICARE, OTHER, SELFPAY ==
[2025-04-20 15:07] VITALS: BMI 26.7
--- OUTSIDE RECORDS SUMMARY | 2025-05-05 02:37 | XMS_ITS | Referral Summary ---
Author Organization [facility] Address [address] [place] [address] Care Team Providers Care Physician Support Coordinator Name Role Phone Natan Tao MD Primary Care Provider [phone] Allergies No known active allergies Medications albuterol HFA (PROVENTIL HFA,VENTOLIN HFA,PROAIR HFA) 90 mcg/actuation inhaler INHALE 2 PUFFS EVERY 4 HOURS NEEDED FOR SHORTNESS OF BREATH OR WHEEZING 3 Active ascorbic acid (VITAMIN C) 1,000 mg tablet Take 1 tablet (1,000 mg total) by mouth daily Active atorvastatin (LIPITOR) 10 mg tablet Take 1 tablet (10 mg total) by mouth daily Active cholecalciferol (VITAMIN D-3) 25 mcg (1,000 unit) tablet Take 1 tablet (1,000 Units total) by mouth daily 2,000 units daily Active cyanocobalamin (Vitamin B-12) 1,000 mcg tablet Take 1 tablet (1,000 mcg total) by mouth daily Active LORazepam (ATIVAN) 0.5 mg tablet Take 1 tablet (0.5 mg total) by mouth every 6 (six) hours as needed Active triamcinolone acetonide 0.025 % lotion APPLY TOPICALLY TO THE AFFECTED AREA TWICE DAILY 4 Active zoledronic dxya-dtbvzuzC-p ater (RECLAST) 5 mg/100 mL piggyback Infuse 100 mL (5 mg total) into a venous catheter once Active calcium acetate,phospha t bind, (PHOSLO) 667 mg capsule Take 500 mg by mouth 3 (three) times a day with meals Active biotin 10,000 mcg capsule Take by mouth daily Active magnesium gluconate 200 mg tabletIndicatio ns:hypomagnesem ia 1.25 tablets (250 mg total) Active multivitamin (MULTI-DAY ORAL) Take by mouth Active naproxen sodium (ALEVE ORAL) Take by mouth Act eladio pen needle, diabetic (BD Ultra-Fine Mini Pen Needle) 31 gauge x /16 needle Use one needle once daily 100 each 3 4 Active Active Problems No known active problems Social History Tobacco Use Types Packs/Day Years Used Date Smoking Tobacco: Never Assessed Passive Smoke Exposure: Never Tobacco Cessation:Counseling Given: Not Answered Personal Safety Answer Date Recorded Getting School Help Needed Not on file 11/08 Comments Unknown Sex and Gender Information Value Date Recorded Sex Assigned at Not on file Legal Sex Female 12:37 AM BELL CLERK Gender Identity Not on file Sexual Orientation Not on file Last Filed Vital Signs Vital Sign Reading Time Taken Comments Blood Pressure - - Pulse - - Temperature - - Respiratory Rate - - Oxygen Saturation - - Inhaled Oxygen Concentration - - Weight 70.3 kg (155 lb) 12/11/2023 12:37 PM BELL CLERK Height 156 cm (5' 1.42) 12/11/2023 12:37 PM BELL CLERK Body Mass Index 28.89 12/11/2023 12:37 PM BELL CLERK Plan of Treatment Not on file Procedures Procedure Name Priority Date/Time Associated Diagnosis Comments DEXA TBS AXIAL SKELETON BONE DENSITY 1 OR MORE SITES Schedule Routine, Read Routine (OP Routine) 12/11/2023 12:27 PM BELL CLERK Age-related osteoporosis without current pathological fracture from Last 3 Months or Most Recently Relevant to Health Maintenance Results * Dexa TBS Axial Skeleton Bone Density 1 or more sites (12/11/2023 12:27 PM BELL CLERK) Anatomical Region Laterality Modality Wrist, Body N/A Radiographic Annette ging Narrative 12/11/2023 12:41 PM BELL CLERK Patient Name: Ange MejiaDyana Date of : 1950 Date of scan: 12/11/2023 Bone mineral density was performed on a [employer] Discovery Densitometer. Based on machine cross-calibration and precision studies the least significant changes of this densitometer is 0.024 g/cm2 at the spine, 0.020 g/cm2 at the total proximal femur, and 0.014g/cm2 at the forearm. HISTORY: This is a 73 y.o. postmenopausal female with a history of hyperparathyroidism(post surgery) and osteoporosis. She has no history on file for tobacco use. Currently on treatment with calcium and vitamin D, previously treated with alendronate (Fosamax), risedronate (Actonel), and zoledronic acid (Reclast), and current complaint of leg pain and knee pain . INDICATIONS: Menopause status and history of osteoporosis. FINDINGS: BONE MINERAL DENSITY OF THE LUMBAR SPINE Bone Mineral Density (BMD) of the lumbar spine was measured from L1-L4 and the average density was calculated to be 0.697 gm/cm2. This corresponds to a T-score (standard deviations from the mean of young adults) of -3.2. There is no previous study available for comparison. BONE MINERAL DENSITY OF THE PROXIMAL FEMUR Bone Mineral Density (BMD) of the left hip total was found to be 0.662 gm/cm2. This corresponds to a T-score standard deviations from the mean of young adults of -2.3. Femoral neck is 0.486 gm/cm2 with a T-score (standard deviations from the mean of young adults) of -3.3. There is no previous study available for comparison. SUMMARY: Bone mineral density shows evidence of osteoporosis and marked increase risk of fracture. The lumbar spine Trabecular Bone Score is 1.161 which suggests degraded bone microarchitecture compared to the general population. Final decisions regarding diagnostic or therapeutic recommendations should include BMD, TBS, additional clinical risk factors as well the clinical context of the patient. Please see attached TBS results for further details. ADDITIONAL COMMENTS: Postmenopausal Women and Men Over 50: Diagnostic criteria: Osteoporosis: BMD at or below -2.5 T-score; Osteopenia (low bone mass): BMD between -1.0 and -2.5 T-score. If the patient has a history of a fragility fracture, a fracture that occurred with trauma equivalent to a fall from a standing position or less, then the diagnosis is osteoporosis regardless of bone density. The history and data sections of the bone mineral density scan were prepared by Vandana Santiago) SONNY who is accredited by the International Society of Clinical Densitometry. The overall patient assessment and scan interpretation were performed by Mynor Samuels MD who is certified by the International Society of Clinical Densitometry. [id number] Mynor Samuels MD IMG DXA PROCEDURES Final Result from Last 3 Months or Most Recently Relevant to Health Maintenance Insurance MEDICARE [employer] MEDICARE FOR LIFE Care Teams Physician Support Coordinator Relationship Specialty Start Date End Date Natan Tao MD [address] [place] [id number] PCP - General Family Medicine 12/11/23
--- OUTSIDE RECORDS SUMMARY | 2025-05-05 02:37 | XMS_ITS | Encounter Summary ---
Author Organization [facility] Address [address] [place] [address] Care Team Providers Care Correction Officer Penitentiary Name Role Phone Brad Gardner MD Primary Care Provider [phone] Natty Hardin PA-C Primary Care Provider [phone] Encounter Details Date Type Department Care Team (Latest Contact Info) Description 09/24/2018 Abstract [facility] Damaris Berumen MD Social History Tobacco Use Types Packs/Day Years Used Date Smoking Tobacco: Never Assessed Comments Unknown Sex and Gender Information Value Date Recorded Sex Assigned at Not on file Legal Sex Female 10:44 PM CDT Gender Identity Not on file Sexual Orientation Not on file documented as of this encounter Plan of Treatment Not on file documented as of this encounter Visit Diagnoses Not on filedocumented in this encounter Care Teams Correction Officer Penitentiary Relationship Specialty Start Date End Date Brad Gardner MD PCP - General INTERNAL MEDICINE 06/19/17 12/27/22 Natty Hardin PA-C [address] [place], [place] [address] [place] [address] PCP - General PHYSICIAN STAFF ACCOUNTANT 12/28/22 documented as of this encounter
--- OUTSIDE RECORDS SUMMARY | 2025-05-05 02:37 | XMS_ITS | Clinical Summary ---
Author Organization [facility] Address [address] [place] [address] Care Team Providers Care Audit Intern Name Role Phone Natty Cobb PA-C Primary Care Provider [phone] Allergies No known active allergies Medications ibuprofen 600 MG tablet Active zoledronic acid 5 MG/100ML Solution infusion Inject 5 mg into the vein once. Last administered 10/2017. Administered yearly. Active multivitamin tablet Take 1 tablet by mouth daily. Active vitamin C 1000 MG tablet Take 1,000 mg by mouth daily. Active vitamin B-12 (CYANOCOBALAMIN ) 1000 mcg tablet Take 1,000 mcg by mouth daily. Active vitamin D3, cholecalciferol , 1000 UNIT Tab tablet Take 1 tablet by mouth daily. Active atorvastatin 10 MG tablet Take 10 mg by mouth daily. Active lorazepam 0.5 MG tablet Take 0.5 mg by mouth every 6 (six) hours as needed for Anxiety. Active Active Problems Problem Noted Date Diagnosed Date Status post left knee replacement 02/27/2024 Foot drop, left 02/27/2024 Basal cell carcinoma of lowe r extremity, unspecified laterality 09/22/2012 Actinic keratosis 08/13/2012 Skin neoplasm 08/13/2012 Acid reflux Family History Medical History Relation Comments COPD Father Heart Disease Father Heart Disease Mother cancer in leg/bone Mother Colon Cancer Paternal Aunt 1 50s Colon polyps Paternal Aunt 2 80s Breast Cancer Neg Hx Relation Status Comments Father Mother Paternal Aunt 1 Paternal Aunt 2 Social History Tobacco Use Types Packs/Day Years Used Date Smoking Tobacco: Never Smokeless Tobacco: Never Alcohol Use Standard Drinks/Week Comments No 0 (1 standard drink = 0.6 oz pur e alcohol) AUDIT-C Answer Date Recorded Frequency of Alcohol Consumption Never 12/03/2018 Average Number of Drinks Not on file 019 Frequency of Binge Drinking Not on file 11/19 Comments Unknown Sex and Gender Information Value Date Recorded Sex Assigned at Not on file Legal Sex Female 10:44 PM CDT Gender Identity Not on file Sexual Orientation Not on file Last Filed Vital Signs Vital Sign Reading Time Taken Comments Blood Pressure 114/76 12/03/2018 12:41 PM RAILROAD BAGGAGE PORTER Pulse 92 08/13/2012 2:19 PM CDT Temperature 36.5 C (97.7 F) 12/03/2018 12:41 PM RAILROAD BAGGAGE PORTER Respiratory Rate - - Oxygen Saturation - - Inhaled Oxygen Concentration - - Weight 69.4 kg (153 lb) 12/03/2018 12:41 PM RAILROAD BAGGAGE PORTER Height 157.5 cm (5' 2) 12/03/2018 12:41 PM RAILROAD BAGGAGE PORTER Body Mass Index 27.98 12/03/2018 12:41 PM RAILROAD BAGGAGE PORTER Plan of Treatment Health Maintenance Due Date Last Done Comments Colorectal Cancer Screening Colonoscopy (10 Years) 1950 Hepatitis C 1967 DTaP, Tdap and Td Vaccines ( 1 - Tdap) 1968 Pneumococcal Vaccine: 50+ Years (1 of 1 - PCV) 1999 Zoster Vaccines (1 of 2) 1999 Annual Medicare Wellness Visit 2014 RSV Immunization or 60+ Years (1 - 1-dose 75+ series) 2024 COVID-19 Vaccine (1 - 2023-2 5 season) 2024 Dexa Scan (General) Completed 12/11/2023, 01/09/2023, 06/30/2020 Meningococcal B Vaccine Aged Out No l onger eligible based on patient's age to complete this topic Meningococcal Vaccine Aged Out No sonia carolyn eligible based on patient's age to complete this topic RSV Immunizations Under 20 Months Aged Out No longer eligible b ased on patient's age to complete this topic Procedures Procedure Name Priority Date/Time Associated Diagnosis Comments BONE DENSITY/DEXA Routine 01/09/2023 12: 54 PM RAILROAD BAGGAGE PORTER Age-related osteoporosis without current pathological fracture from Last 3 Months or Most Recently Relevant to Health Maintenance Results * BONE DENSITY/DEXA (01/09/2023 12:54 PM RAILROAD BAGGAGE PORTER) Anatomical Region Laterality Modality Bone Bone Density 01/09/2023 1:54 PM RAILROAD BAGGAGE PORTER Narrative 01/09/2023 1:57 PM RAILROAD BAGGAGE PORTER IMAGING STUDIES: BONE DENSITY/DEXA DATE: 01/09/2023 12:30 PM CLINICAL HISTORY: Postmenopausal. On calcium replacement therapy. 72-year-old female with menopause at age 49. FINDINGS: LUMBAR SPINE L2-L4: BMD: 0.672 g/sq cm T-SCORE: -3.7 WHO CLASSIFICATION: Severe osteoporosis FRACTURE RISK: High LEFT FEMORAL NECK: BMD: 0.535 T-SCORE: -2.8 WHO CLASSIFICATION: Mild osteoporosis FRACTURE RISK: Moderate COMPARISON STUDY: 06/30/2020. LUMBAR SPINE L2-L4: BMD: 0.694 T-SCORE: -3.5 WHO CLASSIFICATION: Severe osteoporosis FRACTURE RISK: High LEFT FEMORAL NECK: BMD: 0.527 T-SCORE: -2.9 WHO CLASSIFICATION: Mild osteoporosis FRACTURE RISK: Moderate Recommendation. Continuation of calcium replacement therapy with repeat imaging in one year. Possible initiation of more aggressive replacement therapy Ordered By: NATTY COBB Interpreted By: Felix Riggins, 01/09/2023 1:54 PM Procedure Note Paul Riggins MD - 01/09/2023 IMAGING STUDIES: BONE DENSITY/DEXA DATE: 01/09/2023 12:30 PM CLINICAL HISTORY: Postmenopausal. On calcium replacement therapy.72-year-old female with menopause at age 49. FINDINGS: LUMBAR SPINE L2-L4: BMD: 0.672 g/sq cm T-SCORE: -3.7 WHO CLASSIFICATION: Severe osteoporosis FRACTURE RISK: High LEFT FEMORAL NECK: BMD: 0.535 T-SCORE: -2.8 WHO CLASSIFICATION: Mild osteoporosis FRACTURE RISK: Moderate COMPARISON STUDY: 06/30/2020. LUMBAR SPINE L2-L4: BMD: 0.694 T-SCORE: -3.5 WHO CLASSIFICATION: Severe osteoporosis FRACTURE RISK: High LEFT FEMORAL NECK: BMD: 0.527 T-SCORE: -2.9 WHO CLASSIFICATION: Mild osteoporosis FRACTURE RISK: Moderate Recommendation. Continuation of calcium replacement therapy with repeatimaging in one year. Possible initiation of more aggressive replacementtherapy Ordered By: NATTY COBB Interpreted By: Felix Riggins, 01/09/2023 1:54 PM Natty Cobb PA-C DEXA Final Resu lt from Last 3 Months or Most Recently Relevant to Health Maintenance Insurance [facility] MEDICARE MEDICARE [facility] Care Teams Audit Intern Relationship Specialty Start Date End Date Natty Cobb PA-C [address] [place], [place] [id number] [place] [address] PCP - General PHYSICIAN CAR RETARDER OPERATOR 12/28/22
--- OUTSIDE RECORDS SUMMARY | 2025-05-05 02:37 | XMS_ITS | Clinical Summary ---
Author Organization [facility] Address [address] [place] [address] Care Team Providers Care Mobile Mechanic Name Role Phone Natan Tao MD Primary Care Provider [phone] Allergies No known active allergies Medications albuterol [...] AFFECTED AREA TWICE DAILY 4 Active zoledronic zeim-bjmzhbrT-u ater (RECLAST) 5 mg/100 mL piggyback Infuse [...] Ultra-Fine Mini Pen Needle) 31 gauge x / needle Use one needle once daily 100 [...] on file Legal Sex Female 12:37 AM PREPARATION SUPERVISOR CANNING Gender Identity Not on file Sexual Orientation Not on file Obstetrics History Last Filed Vital Signs Vital Sign Reading Time Taken Comments Blood Pressure - - Pulse - - Temperature - - Respiratory Rate - - Oxygen Saturation - - Inhaled Oxygen Concentration - - Weight 70.3 kg (155 lb) 12/11/2023 12:37 PM PREPARATION SUPERVISOR CANNING Height 156 cm (5' 1.42) 12/11/2023 12:37 PM PREPARATION SUPERVISOR CANNING Body Mass Index 28.89 12/11/2023 12:37 PM PREPARATION SUPERVISOR CANNING Plan of Treatment Health Maintenance Due Date Last Done Comments Colon Cancer Screening-Colonoscopy 1950 Depression Screening 1950 Fall Risk Assessment 1950 Hepatitis C Screening 1950 DTaP/Tdap/Td Vaccine (1 - Tdap) 1960 Hepatitis B Screening 1967 Pneumococcal vaccine 65+ (1 of 1 - PCV) 1999 Zoster Vaccine (1 of 2) 1999 Well Visit 65+ 2014 Influenza Vaccine (Season Ended) 2025 Osteoporosis Screening-Bone Density Scan 12/11/2025 12/11/2023, 01/09/2023 Procedures Procedure Name Priority Date/Time Associated Diagnosis Comments DEXA TBS AXIAL SKELETON BONE DENSITY 1 OR MORE SITES Schedule Routine, Read Routine (OP Routine) 12/11/2023 12:27 PM PREPARATION SUPERVISOR CANNING Age-related osteoporosis without current pathological fracture from Last 3 Months or Most Recently Relevant to Health Maintenance Results * Dexa TBS Axial Skeleton Bone Density 1 or more sites (12/11/2023 12:27 PM PREPARATION SUPERVISOR CANNING) Anatomical Region Laterality Modality Wrist, Body N/A Radiographic Annette ging Narrative 12/11/2023 12:41 PM PREPARATION SUPERVISOR CANNING Patient Name: Ange Sanabria Date of : 1950 Date of scan: 12/11/2023 Bone mineral density was performed on a [email or web address] Discovery Densitometer. Based on machine cross-calibration and [...] by the International Society of Clinical Densitometry. [id number] Mynor Samuels MD IMG DXA PROCEDURES Final Result from Last 3 Months or Most Recently Relevant to Health Maintenance Insurance MEDICARE [employer] MEDICARE FOR LIFE Care Teams Mobile Mechanic Relationship Specialty Start Date End Date Natan Tao MD [address] [place] [id number] PCP - General Family Medicine 12/11/23
[2025-05-05 09:38] VITALS: BP 130/90; PULSE 104; RESP 18; TEMP 36.7; O2SAT 95
[2025-05-05] MEDS: LACTATED RINGERS 1,000 ML 150 ML IV CONT (09:46)
--- NOTE | 2025-05-05 09:51 | P.PNAN_ITS ---
Anes - Initial Pre Proc Eval Procedure: Operation Date: 05/05/25 11:00 Proposed Procedures p Colonoscopy - Mario Bradley MD Date/Time: 05/05/25 09:51 Surgeon: Mario Bradley MD Pre Op Diagnosis: Family history of malignant neoplasm of digestive Patient Data Age: 74 Gender: F Height: 1.6 m Weight: 66.2 kg Last Vital Signs Temp 36.7 C 05/05/25 09:38 Pulse 104 H 05/05/25 09:38 Resp 18 05/05/25 09:38 BP 130/90 05/05/25 09:38 Pulse Ox 95 05/05/25 09:38 O2 Del Method Room Air 05/05/25 09:38 Allergies Allergy/AdvReac Type Severity Reaction Status Date / Time No Known Allergies Allergy Verified 05/05/25 09:35 Home Medications ?Medication ?Instructions ?Recorded ?Confirmed ?Type ascorbate calcium (vitamin C) 500 2,000 mg PO DAILY 04/12/21 05/05/25 History mg tablet biotin 10,000 mcg capsule 10,000 mcg PO DAILY 04/12/21 05/05/25 History cholecalciferol (vitamin D3) 50 50 mcg PO DAILY 04/12/21 05/05/25 History mcg (2,000 unit) capsule iron,carbonyl 65 mg-vitamin C 125 1 tablet PO DAILY 04/12/21 05/05/25 History mg tablet,delayed release (Vitron-C) [id number] 8 mg-folic 400 1 tablet PO DAILY 04/12/21 05/05/25 History mcg-K 50 mcg-lutein 300 mcg tablet (Centrum Silver Women) magnesium 250 mg tablet 250 mg PO DAILY 10/15/23 05/05/25 History mecobalamin (vitamin B12) 1,000 1,000 mcg PO DAILY 10/15/23 05/05/25 History mcg chewable tablet calcium carbonate 600 mg PO BID 10/17/23 05/05/25 History lorazepam 0.5 mg tablet See Rx Instructions PO QHS PRN 10/17/23 04/29/25 Rx sleep #30 tabs multivitamin with minerals 1 tablet PO DAILY 12/25/23 05/05/25 History naproxen sodium 220 mg capsule 220 mg PO Q12H PRN Pain 12/25/23 04/29/25 History (Aleve) turmeric root extract 150 1 tablet PO DAILY 12/25/23 05/05/25 History mg-rachel root extract 25 mg chewable tablet Optizinc 04/20/25 04/29/25 History Patient hx anesthesia problems: none Family hx anesthesia problems: none Results Review: All pre-operative results and documents have been reviewed as part of the pre- operative evaluation. [facility] Past Medical History Medical History Melanoma of back Kelly Toth at [facility] 09/2022 Foot drop, left Rash Blepharitis, bilateral Preoperative clearance Osteoarthritis of left knee Osteoarthritis of right knee Right knee pain Iron deficiency Anemia Dyslipidemia Osteoporosis Knee pain Hiatal hernia Surgical History Surgical History History of left knee replacement Jan 16, 2024 S/P total knee arthroplasty LEFT TKA 01/16/24 H/O parathyroidectomy x4 January 1994 03/14/23 PTH level normal at 30. Family History Family History Sibling Hypertension Father Family history of cardiovascular disease Mother Family history of cardiovascular disease Family history of malignant neoplasm Social History Social History Smoking status: Never smoker Second hand tobacco smoke exposure: No Additional smoking assessment comments: PT DENIES ALL FORMS OF TOBACCO USE Alcohol intake: never Substance use: never Substance use type: does not use Do You Feel Safe in your Home?: Yes Lack of Transportation: No Lack of Food: Never True Current Housing: I Have Housing Concerned About Future Housing: No Difficulty Paying Gas/Electric Bills: No Difficulty Paying for Meds: No Currently Unemployed: No Education: High School Diploma/GED Difficulty w/ Childcare or Family Care: No Living arrangements: with family Occupation/Education: retired Gender identity (if verbalized by the patient): Female Sexual Orientation (if Verbalized by the Patient): Straight or Heterosexual Spiritual care concerns: No Anes - Eval Final PreProcedure Day of Procedure 05/05/25 09:51 Patient weight: normal Heart: regular rate and rhythm Lungs: clear to auscultation Airway: Mallampati scale class II Neurological: alert and oriented Last oral intake: >/= 8 hours ASA classification: III Emergent: no Anesthetic plan: proceed Anesthesia type and monitoring: general GIVS and standard monitoring Results Review: All pre-operative results and documents have been reviewed as part of the pre- operative evaluation. Informed Consent: The patient's anesthetic plan and its attendant risks and benefits were discussed with the patient/family/POA. Questions were solicited and answers provided to the satisfaction of the patient/family/POA.
--- NOTE | 2025-05-05 10:20 | PM.HPGS ---
History of Present Illness History of Present Illness Consent: Risks, benefits, and alternatives have been discussed and questions answered. Patient agrees to proceed with procedure. Chief complaint: Family history of malignant neoplasm of digestive Narrative: Ange Carrasco is a 74 year old female here for screening colonoscopy, last one in 2018 Review of Systems Review of Systems: All systems reviewed & are unremarkable except as noted in HPI and below PMFSH Past Medical History Medical History (Updated 05/05/25 @ 10:21 by Mario Bradley MD) Colon cancer screening Melanoma of back Kelly Toth at [facility] 09/2022 Foot drop, left Rash Blepharitis, bilateral Preoperative clearance Osteoarthritis of left knee Osteoarthritis of right knee Right knee pain Iron deficiency Anemia Dyslipidemia Osteoporosis Knee pain Hiatal hernia Surgical History Surgical History History of left knee replacement Jan 16, 2024 S/P total knee arthroplasty LEFT TKA 01/16/24 H/O parathyroidectomy x4 January 1994 03/14/23 PTH level normal at 30. Family History Family History Sibling Hypertension Father Family history of cardiovascular disease Mother Family history of cardiovascular disease Family history of malignant neoplasm Social History Social History Smoking status: Never smoker Second hand tobacco smoke exposure: No Additional smoking assessment comments: PT DENIES ALL FORMS OF TOBACCO USE Alcohol intake: never Substance use: never Substance use type: does not use Do You Feel Safe in your Home?: Yes Lack of Transportation: No Lack of Food: Never True Current Housing: I Have Housing Concerned About Future Housing: No Difficulty Paying Gas/Electric Bills: No Difficulty Paying for Meds: No Currently Unemployed: No Education: High School Diploma/GED Difficulty w/ Childcare or Family Care: No Living arrangements: with family Occupation/Education: retired Gender identity (if verbalized by the patient): Female Sexual Orientation (if Verbalized by the Patient): Straight or Heterosexual Spiritual care concerns: No Meds Home Medications and Allergies Home Medications ?Medication ?Instructions ?Recorded ?Confirmed ?Type ascorbate calcium (vitamin C) 500 2,000 mg PO DAILY 04/12/21 05/05/25 History mg tablet biotin 10,000 mcg capsule 10,000 mcg PO DAILY 04/12/21 05/05/25 History cholecalciferol (vitamin D3) 50 50 mcg PO DAILY 04/12/21 05/05/25 History mcg (2,000 unit) capsule iron,carbonyl 65 mg-vitamin C 125 1 tablet PO DAILY 04/12/21 05/05/25 History mg tablet,delayed release (Vitron-C) [id number] 8 mg-folic 400 1 tablet PO DAILY 04/12/21 05/05/25 History mcg-K 50 mcg-lutein 300 mcg tablet (Centrum Silver Women) magnesium 250 mg tablet 250 mg PO DAILY 10/15/23 05/05/25 History mecobalamin (vitamin B12) 1,000 1,000 mcg PO DAILY 10/15/23 05/05/25 History mcg chewable tablet calcium carbonate 600 mg PO BID 10/17/23 05/05/25 History lorazepam 0.5 mg tablet See Rx Instructions PO QHS PRN 10/17/23 04/29/25 Rx sleep #30 tabs multivitamin with minerals 1 tablet PO DAILY 12/25/23 05/05/25 History naproxen sodium 220 mg capsule 220 mg PO Q12H PRN Pain 12/25/23 04/29/25 History (Aleve) turmeric root extract 150 1 tablet PO DAILY 12/25/23 05/05/25 History mg-rachel root extract 25 mg chewable tablet Optizinc 04/20/25 04/29/25 History Allergies Allergy/AdvReac Type Severity Reaction Status Date / Time No Known Allergies Allergy Verified 05/05/25 09:35 Vital Signs Vital Signs - 24 hr 05/05/25 09:38 Temperature 98.1 F Pulse Rate 104 H Respiratory Rate 18 Blood Pressure 130/90 Pulse Oximetry 95 Oxygen Delivery Room Air Exam Const: General: comfortable and no acute distress HENMT: Face/Nose/Sinus: Normal nares present Eyes: General: appearance normal, both eyes and all related structures Neck: Neck: no JVD Resp: Auscultation: clear to auscultation bilaterally Cardio: Rate: regular rate Rhythm: regular rhythm GI: Inspection: non-distended GI Palp: Yes Soft to palpation Skin: General skin exam: normal color Neuro: Speech: normal speech Extrem: General: normal to inspection Psych: Mental Status: mental status grossly normal Assessment and Plan Assessment and plan (1) Colon cancer screening: Code(s): Z12.11 - Encounter for screening for malignant neoplasm of colon Status: Acute Assessment and Plan: colonoscopy
[2025-05-05 10:36] VITALS: BP 144/90; PULSE 89; RESP 20; O2SAT 98
[2025-05-05 10:46] VITALS: BP 127/81; PULSE 78; RESP 23; O2SAT 98
[2025-05-05 10:56] VITALS: BP 133/83; PULSE 76; RESP 21; O2SAT 100
== END 2025-05-05 11:27 | disposition home or self-care (01) ==
PROVIDERS: PCP Nurse Practitioner Family; Referring Provider Nurse Practitioner Family; Visit Provider Internal Medicine Gastroenterology
PROC: 0DJD8ZZ Inspection of Lower Intestinal Tract, Via Natural or Artificial Opening Endoscopic (ICD-10-PCS; CPT 45378; principal; 2025-05-05 11:00)
DX: Z12.11 Encounter for screening for malignant neoplasm of colon (principal); K57.30 Diverticulosis of large intestine without perforation or abscess without bleeding; K64.8 Other hemorrhoids; Z80.0 Family history of malignant neoplasm of digestive organs
CPT/HCPCS: G0105; J2003; J2704; J7120